=== PATIENT | male | born 1970 | race Caucasian/White ===

== ENCOUNTER 2019-05-11 09:19 | Emergency (ER) | payer BC ==
[2019-05-11 09:30] VITALS: PULSE 88
[2019-05-11] MEDS ORDERED: TORAdol 30 mg Injection IV ONE (09:51)
[2019-05-11] MEDS ORDERED: Zofran 4 MG/2 ML VIAL IV ONE (09:52)
--- NOTE | 2019-05-11 09:53 | ERPHSYRPT ---
- History of Present Illness Time Seen by Provider: 05/11/19 09:38 Historian: patient Exam Limitations: no limitations Patient Subjective Stated Complaint: Pt states "For the past week I have had back pain and now the pain is in my belly and I can't pee, I cant poop, it is horrible." Triage Nursing Assessment: Pt presented alert and orietned X 3, skin pwd. Pt ambulates with an upright steady gait, able to speak in clear full sentecnes. Pt moaning. Physician History: The patient is a 41-year-old male who presents with the chief complaint of right lower back pain and right lower quadrant abdominal pain that started a week ago. He had secondary complaints of constipation and difficulty urinating specifically weak urinary stream. He reports that he was at work and "tweaked his back" and has been going to a chiropractor over the last week for some relief in his symptoms. Over the past week, does endorse having episodes of nausea and the right lower back pain now seems to radiate to his right lower quadrant and he feels as if his testicles are "in a vice". He denies fever, chills but endorse having constipation over the last couple days in addition to her weak urinary stream over the last couple days. He reportedly has been taking ibuprofen with some relief of symptoms. He states he's got a history of a kidney stone but never followed up with urologist. his pain is described as a aching throbbing pain that radiates to his right lower quadrant is constant and is currently mild. Allergies/Adverse Reactions: No Known Drug Allergies Allergy (Verified 05/11/19 09:30) Home Medications: Allopurinol 100 mg [Zyloprim 100 mg] 100 mg PO DAILY 05/11/19 [History] Gabapentin [Neurontin] 600 mg PO DAILY 05/11/19 [History] Lisinopril/Hydrochlorothiazide [Lisinopril-Hctz 20-12.5 mg Tab] 1 tab PO DAILY 05/11/19 [History] Hx Tetanus, Diphtheria Vaccination/Date Given: No Hx Influenza Vaccination/Date Given: No Hx Pneumococcal Vaccination/Date Given: No Immunizations Up to Date: Yes - Review of Systems Constitutional: No Fever, No Chills Eyes: No Symptoms Ears, Nose, & Throat: No Symptoms Respiratory: No Symptoms, No Cough, No Cyanosis, No Dyspnea on Exertion (ARAUJO) Cardiac: No Symptoms, No Chest Pain, No Edema Abdominal/Gastrointestinal: Abdominal Pain, Nausea, Constipation, No Vomiting, No Diarrhea Genitourinary Symptoms: Flank Pain, Testicle Pain, Other (Weak stream), No Dysuria, No Penile Discharge Musculoskeletal: Back Pain Skin: No Symptoms Neurological: No Symptoms All Other Systems: Reviewed and Negative - Past Medical History Pertinent Past Medical History: Yes Neurological History: No Pertinent History ENT History: No Pertinent History Cardiac History: Hypertension Respiratory History: No Pertinent History Endocrine Medical History: No Pertinent History Musculoskeletal History: Arthritis GI Medical History: No Pertinent History History: No Pertinent History Psycho-Social History: No Pertinent History Male Reproductive Disorders: No Pertinent History Other Medical History: lt knee surgery - Past Surgical History Past Surgical History: Yes Neuro Surgical History: No Pertinent History Cardiac: No Pertinent History Respiratory: No Pertinent History Gastrointestinal: No Pertinent History Genitourinary: No Pertinent History Musculoskeletal: Orthopedic Surgery Male Surgical History: No Pertinent History Other Surgical History: lt knee reconstruction-acl repair--1994. left shoulder replaced - Social History Smoking Status: Never smoker Exposure to second hand smoke: Yes Drug Use: none Patient Lives Alone: Yes Significant Family History: no pertinent family hx - Nursing Vital Signs Nursing Vital Signs: Initial Vital Signs Temperature 98.0 F 05/11/19 09:25 Pulse Rate 88 05/11/19 09:25 Respiratory Rate 22 05/11/19 09:25 Blood Pressure 138/88 05/11/19 09:25 O2 Sat by Pulse Oximetry 96 05/11/19 09:25 Pain Scale Pain Intensity 3 - Physical Exam General Appearance: no apparent distress Eye Exam: PERRL/EOMI Ears, Nose, Throat Exam: normal ENT inspection Neck Exam: normal inspection Respiratory Exam: normal breath sounds, lungs clear, airway intact, No respiratory distress Cardiovascular Exam: regular rate/rhythm, normal heart sounds, normal peripheral pulses, capillary refill <2 sec Gastrointestinal/Abdomen Exam: soft, tenderness, other (RLQ tenderness with rebound tenderness), No distention, No mass, No guarding, No ecchymosis Male Genitalia Exam: normal genitalia, No testicular tenderness, No testicular mass Back Exam: normal inspection, other (No CVA tenderness, no midline spine tenderness, fluctuance or induration) Neurologic Exam: alert, oriented x 3 Skin Exam: normal color, warm, cyanosis, No rash, No petechiae, No jaundice SpO2 Interpretation: normal SpO2: 96 O2 Delivery: Room Air - Course Nursing assessment & vital signs reviewed: Yes - CT Exams Abdomen/Pelvis CT Interpretation: Other (Upon my review it appeares the patient has a small obstructing kidney stone in the right UVJ. Awaiting formal radiology review.) Ordered Tests: Medication Summary Discontinued Medications Generic Name Dose Route Start Last Admin Trade Name Krystal PRN Reason Stop Dose Admin Ketorolac Tromethamine 15 mg 05/11/19 09:51 05/11/19 10:01 Toradol 30 Mg Injection IV 05/11/19 09:52 15 mg STAT ONE Administration Ketorolac Tromethamine Confirm 05/11/19 09:59 Toradol 30 Mg Injection Administered 05/11/19 10:00 Dose 30 mg .ROUTE .STK-MED ONE Ondansetron HCl 4 mg 05/11/19 09:52 05/11/19 10:01 Zofran 4 Mg/2 Ml Vial IV 05/11/19 09:53 4 mg STAT ONE Administration Ondansetron HCl Confirm 05/11/19 09:59 Zofran 4 Mg/2 Ml Vial Administered 05/11/19 10:00 Dose 4 mg .ROUTE .STK-MED ONE Lab/Rad Data: Laboratory Result Diagrams 05/11/19 10:15 Laboratory Results 05/11/19 05/11/19 Range/Units 10:15 10:05 Sodium Direct 138 (138-146) mmol/L Potassium 3.7 (3.5-4.9) mmol/L Chloride 100 (98-109) mmol/L Carbon Dioxide 28 (24-29) mmol/L Venous BUN 26 (8-26) mg/dL Creatinine 1.3 (0.6-1.3) mg/dL Glucose 110 H (70-105) mg/dL Ionized Calcium 1.11 L (1.12-1.32) mmol/L Urine Color YELLOW (YELLOW) Urine Appearance CLEAR (CLEAR) Urine pH 5.0 (5-6) Ur Specific [place] 1.015 (1.005-1.025) Urine Protein NEGATIVE (Negative) Urine Ketones NEGATIVE (NEGATIVE) Urine Blood LARGE (0-5) Paul/ul Urine Nitrite NEGATIVE (NEGATIVE) Urine Bilirubin NEGATIVE (NEGATIVE) Urine Urobilinogen NEGATIVE (0-1) mg/dL Ur Leukocyte Esterase NEGATIVE (NEGATIVE) Urine WBC (Auto) 0-2 (0-5) /HPF Urine RBC (Auto) >101 (0-2) /HPF U Epithel Cells (Auto) NONE (FEW) /HPF Urine Bacteria (Auto) RARE (NEGATIVE) /HPF Urine Mucus (Auto) SLIGHT (NEGATIVE) /HPF Urine Culture Reflexed NO (NO) Urine Glucose NEGATIVE (NEGATIVE) mg/dL - Progress Progress: improved Progress Note: 05/11/19 10:20 I reviewed the patient's EMR and saw the patient had an abdominal CT in 2012 with evidence of a R obstructing urinary stone 2 mm in the UVJ Counseled pt/family regarding: lab results, diagnosis, need for follow-up (Need for f/u with urology), rad results - Departure Departure Disposition: Home Clinical Impression: Urinary tract obstruction by kidney stone, Hydronephrosis with urinary obstruction due to renal calculus, Constipation Condition: Stable Critical Care Time: No Referrals: CARMELITA LINN MD [Primary Care Provider] - DANIKA CURTIS [COURTESY STAFF] - Instructions: Kidney Stones in Adults, How to Strain Your Urine Additional Instructions: Please return to the emergency department if he had worsening pain that can't be controlled with medication, he develop fever, chills. Otherwise followup with urology and call to schedule appointment to be seen in the next one to 2 weeks. Plan of Treatment: Nontoxic in appearance. The patient presents with flank pain and was found to have a 2-4 mm obstruction stone in the right UVJ reviewing his CT with minimal amount of right hydronephrosis. His remaining laboratory workup was reviewed to include his BMP in the day which were relatively benign. He is reassessed upon in his pain was much improved and is ready for discharge. He is given a referral to urology and instructed to strain his ear in an attempt to collect a stone to bring to his followup appointment with urology for further analysis. The return precautions for pain in addition he was instructed to return if you develop any fever or chills in conjunction to his pain. He agreed with the plan is to discharge home. Flomax prescription deferred given stone < 5mm and recent literature showing no benefit to stones this size. I expect him to be able to pass this stone with conservative management. Prescriptions: Hydrocodone/APAP 5-325 Tab^^^ [Brogan 5-325 Tablet^^^] 1 tab PO Q6HPRN PRN #10 tablet MDD 6 PRN Reason: Pain Ketorolac Tromethamine [Toradol] 10 mg PO Q8H PRN PRN #30 tablet PRN Reason: Pain Docusate Sodium 100 mg PO BID 10 Days #30 capsule Ondansetron HCl [Zofran] 4 mg PO TID PRN #10 tablet PRN Reason: Nausea/Vomiting
[2019-05-11] MEDS ORDERED: TORAdol 30 mg Injection ONE (09:59)
[2019-05-11] MEDS ORDERED: Zofran 4 MG/2 ML VIAL ONE (09:59)
[2019-05-11 10:51] LABS: Appearance CLEAR (CLEAR); Bacteria RARE /HPF (NEGATIVE); Bilirubin NEGATIVE (NEGATIVE); Blood LARGE Ery/ul (0-5); Glucose NEGATIVE (NEGATIVE); Ketones NEGATIVE (NEGATIVE); Leukocyte Esterase NEGATIVE (NEGATIVE); Mucus SLIGHT /HPF (NEGATIVE); Nitrite NEGATIVE (NEGATIVE); Protein,Urine Dip NEGATIVE (Negative); Specific Gravity 1.015 (1.005-1.025); Urobilinogen NEGATIVE mg/dL (0-1); WBC 0-2 /HPF (0-5)
[2019-05-11 11:00] LABS: ISTAT CREA 1.3 mg/dL (0.6-1.3)
[2019-05-11 11:30] LABS: RBC >101 /HPF (0-2)
--- NOTE | 2019-05-11 11:36 | XRAY ---
Indication: Right flank pain 1 week. Multiple contiguous axial images obtained through the abdomen and pelvis without contrast as ordered. Comparison: CT renal stone study March 05, 2011. Lung bases demonstrate minimal subsegmental atelectasis/scarring with stable tiny left lower lobe calcified granuloma. Heart is not enlarged. Noncontrasted stomach and bowel loops appear nonobstructed. Normal appendix. There is now minimal left hemicolon diverticulosis. No free fluid/air. New 3-4 mm distal right ureteral calculus approximately 1 cm proximal to the UVJ. Right ureter minimally prominent with minimal hydronephrosis consistent with partial obstructive uropathy. Additional punctate calculi in each kidney. There remains a few calcified splenic granulomas and mild diffuse fatty liver. Remaining liver, gallbladder, pancreas, spleen, adrenal glands, kidneys, ureters, bladder, and aorta appear unremarkable for noncontrast exam. Osseous structures intact with minimal degenerative changes throughout the thoracolumbar spine. Impression: 1. New 3-4 mm distal right ureteral calculus producing minimal obstructive uropathy. Additional new bilateral renal micro-calculi. 2. New mild left hemicolon colonic diverticulosis without diverticulitis. 3. Stable fatty liver and evidence for old granulomatous disease. CT DI 31.20
[2019-05-11 12:06] VITALS: BP 145/77
[2019-05-13 13:05] VITALS: O2SAT 96
== END 2019-05-11 12:05 | disposition home or self-care (01) ==
LOC: ED 09:19
DX: N13.2 Hydronephrosis with renal and ureteral calculous obstruction (principal); K59.00 Constipation, unspecified
CPT/HCPCS: 36000; 36415; 74176; 80047; 81001; 96374; 96375; 99284; J1885; J2405

== ENCOUNTER 2020-05-29 10:42 | Emergency (ER) | payer BC ==
[2020-05-29] MEDS ORDERED: MORPHINE SULFATE 4 MG INJ IM ONE (10:54)
--- NOTE | 2020-05-29 10:55 | ERPHSYRPT ---
- History of Present Illness Time Seen by Provider: 05/29/20 10:45 Source: patient Exam Limitations: no limitations Physician History: 50 years old male presented in the ER with chief complaint of right foot and ankle pain/swelling. Patient reports he twisted his ankle 5 days ago, continue to ambulate until yesterday evening when pain got worse to the point he can hardly put any weight and has associated swelling proximal foot and ankle. Method of Injury: twisted Occurred: days ago (5) Quality: sharpness Severity of Pain-Max: moderate Lower Extremities Pain: hip: bilateral, leg: bilateral, knee: bilateral, thigh: bilateral, foot: right, ankle: right, heel: bilateral, 1st toe: bilateral, 2nd toe: bilateral, 3rd toe: bilateral, 4th toe: bilateral, 5th toe: bilateral, other: bilateral Modifying Factors: Improves With: immobilization, rest. Worsens With: movement Associated Symptoms: unable to bear weight Allergies/Adverse Reactions: No Known Drug Allergies Allergy (Verified 05/29/20 10:49) Home Medications: Allopurinol 100 mg [Zyloprim 100 mg] 100 mg PO DAILY 05/11/19 [History] Gabapentin [Neurontin] 600 mg PO DAILY 05/11/19 [History] Lisinopril/Hydrochlorothiazide [Lisinopril-Hctz 20-12.5 mg Tab] 1 tab PO DAILY 05/11/19 [History] Hx Tetanus, Diphtheria Vaccination/Date Given: No Hx Influenza Vaccination/Date Given: No Hx Pneumococcal Vaccination/Date Given: No - Review of Systems Constitutional: No Symptoms Eyes: No Symptoms Ears, Nose, & Throat: No Symptoms Respiratory: No Symptoms Cardiac: No Symptoms Abdominal/Gastrointestinal: No Symptoms - Past Medical History Pertinent Past Medical History: Yes Neurological History: No Pertinent History ENT History: No Pertinent History Cardiac History: Hypertension Respiratory History: No Pertinent History Endocrine Medical History: No Pertinent History Musculoskeletal History: Arthritis GI Medical History: No Pertinent History History: No Pertinent History Psycho-Social History: No Pertinent History Male Reproductive Disorders: No Pertinent History Other Medical History: lt knee surgery - Past Surgical History Past Surgical History: Yes Neuro Surgical History: No Pertinent History Cardiac: No Pertinent History Respiratory: No Pertinent History Gastrointestinal: No Pertinent History Genitourinary: No Pertinent History Musculoskeletal: Orthopedic Surgery Male Surgical History: No Pertinent History Other Surgical History: lt knee reconstruction-acl repair--1994. left shoulder replaced - Social History Smoking Status: Never smoker Exposure to second hand smoke: Yes Drug Use: none Patient Lives Alone: Yes Significant Family History: no pertinent family hx - Nursing Vital Signs Nursing Vital Signs: Initial Vital Signs Temperature 98.0 F 05/29/20 10:51 Pulse Rate 90 05/29/20 10:51 Respiratory Rate 18 05/29/20 10:51 Blood Pressure 152/99 05/29/20 10:51 O2 Sat by Pulse Oximetry 97 05/29/20 10:51 Pain Scale Pain Intensity 6 Ordered Tests: Active Orders 24 hr Category Date Time Status ANKLE (3 VIEWS) Stat Exams 05/29/20 11:16 Taken FOOT (MINIMUM 3 VIEWS) Stat Exams 05/29/20 11:16 Taken Medication Summary Discontinued Medications Generic Name Dose Route Start Last Admin Trade Name Freq PRN Reason Stop Dose Admin Morphine Sulfate 4 mg 05/29/20 10:54 05/29/20 10:59 Morphine Sulfate 4 Mg Inj IM 05/29/20 10:55 4 mg STAT ONE Administration Morphine Sulfate Confirm 05/29/20 10:59 Morphine Sulfate 4 Mg Inj Administered 05/29/20 11:00 Dose 4 mg .ROUTE .STK-MED ONE - Progress Progress: improved, pain not gone completely Progress Note: 05/29/20 11:43 He is given pain medication. I have obtained x-rays foot and ankle. Ankle x- ray did not show any fracture dislocation. Has questionable avulsion fracture fifth metatarsal. Placed in a long boot, weightbearing as tolerated and outp atient follow-up with Ortho/podiatry recommended. Discussed signs symptoms of worsening needing return to ER which he seems understanding. Counseled pt/family regarding: diagnosis, need for follow-up, rad results - Departure Departure Disposition: Home Clinical Impression: Ankle sprain Qualifiers: Encounter type: initial encounter Involved ligament of ankle: unspecified ligament Laterality: right Qualified Code(s): S93.401A - Sprain of unspecified ligament of right ankle, initial encounter Condition: Stable Critical Care Time: No Referrals: CARMELITA LINN MD [Primary Care Provider] - Follow Up with PCP/3 days CHINMAY OH NP [NON-STAFF PHY W/O PRIVILEGES] - (Tomorrow for reevaluation) Instructions: Foot Fracture (DC) Additional Instructions: Take pain medications as needed. Weightbearing only as possible. Apply ice. Elevation. Avoid exertion. Follow-up with Ortho clinic for reevaluation tomorrow. Return to ER for any worsening. Prescriptions: Hydrocodone/APAP 5-325 Tab^^^ [Lorain 5-325 Tablet^^^] 1 tab PO Q6HPRN PRN #10 tablet MDD 6 PRN Reason: Pain
[2020-05-29] MEDS ORDERED: MORPHINE SULFATE 4 MG INJ ONE (10:59)
[2020-05-29 12:16] VITALS: BP 129/75; PULSE 79; O2SAT 97
--- NOTE | 2020-05-29 18:54 | XRAY ---
Indication: Pain and bruising following injury 5 days ago. Comparison: None 3 view right ankle demonstrates soft tissue swelling, small heel spurs, and tiny cuboid accessory ossicle. No other bony, articular, or soft tissue abnormalities.
--- NOTE | 2020-05-29 18:56 | XRAY ---
Indication: Pain and bruising following injury 5 days ago. Comparison: None 3 nonweightbearing views right foot demonstrates small heel spurs and cuboid accessory ossicle. No other bony, articular, or soft tissue abnormalities.
== END 2020-05-29 12:16 | disposition home or self-care (01) ==
LOC: ED 10:42
DX: S93.401A Sprain of unspecified ligament of right ankle, initial encounter (principal); X50.1XXA Overexertion from prolonged static or awkward postures, initial encounter; Y93.89 Activity, other specified; Y92.89 Other specified places as the place of occurrence of the external cause; M25.571 Pain in right ankle and joints of right foot
CPT/HCPCS: 73610; 73630; 96372; 99284; J2270; L4386

== ENCOUNTER 2024-11-01 23:03 | Emergency (ER) | payer BC, OTHER ==
[2024-11-01 23:10] VITALS: TEMP 97.4
--- NOTE | 2024-11-01 23:10 | ERPHSYRPT ---
- History of Present Illness Time Seen by Provider: 11/01/24 23:09 Source: patient Physician History: This is an overweight 54-year-old white male patient arrives by private vehicle and presents with shortness of breath and coughing that have been present for 2 days. His primary care provider is Dr. Linn. Patient went to [facility] this afternoon and was prescribed Augmentin medication. He took 1 dose of that at 5 PM. His coughing has persisted. Timing/Duration: day(s) (2), worse (Symptoms worse today) Severity of Dyspnea-Max: mild Severity of Dyspnea-Current: mild Possible Cause: no prior episodes Associated Symptoms: cough, No chest pain/discomfort, No wheezing, No hemoptysis, No calf pain Allergies/Adverse Reactions: No Known Drug Allergies Allergy (Verified 11/01/24 23:04) Home Medications: Allopurinol 100 mg [Zyloprim 100 mg] 100 mg PO DAILY 05/11/19 [History] Lisinopril/Hydrochlorothiazide [Lisinopril-Hctz 20-12.5 mg Tab] 1 tab PO DAILY 05/11/19 [History] Amoxicillin/Potassium Clav [Amox-Clav 875-125 mg Tablet] 1 tab PO BID 11/01/24 [History] Methylprednisolone 4 mg [Medrol 4 mg] 2 tab PO BID 11/01/24 [History] Hx Tetanus, Diphtheria Vaccination/Date Given: No Hx Influenza Vaccination/Date Given: No Hx Pneumococcal Vaccination/Date Given: No Travel Risk - International Travel Have you traveled outside of the country in past 3 weeks: No - Emerging Infectious Disease Are you exhibiting symptoms associated with any current EIDs: Yes Symptoms: Cough: New Onset, Shortness of Breath - Review of Systems Constitutional: No Symptoms Eyes: No Symptoms Ears, Nose, & Throat: No Symptoms Respiratory: Cough, Dyspnea Cardiac: No Symptoms Abdominal/Gastrointestinal: No Symptoms Genitourinary Symptoms: No Symptoms Musculoskeletal: No Symptoms Skin: No Symptoms Neurological: No Symptoms Psychological: No Symptoms Endocrine: No Symptoms Hematologic/Lymphatic: No Symptoms Immunological/Allergic: No Symptoms All Other Systems: Reviewed and Negative - Past Medical History Pertinent Past Medical History: Yes Neurological History: No Pertinent History ENT History: No Pertinent History Cardiac History: Hypertension Respiratory History: No Pertinent History Endocrine Medical History: No Pertinent History Musculoskeletal History: Arthritis GI Medical History: No Pertinent History History: No Pertinent History Psycho-Social History: No Pertinent History Male Reproductive Disorders: No Pertinent History Other Medical History: lt knee surgery - Past Surgical History Past Surgical History: Yes Neuro Surgical History: No Pertinent History Cardiac: No Pertinent History Respiratory: No Pertinent History Gastrointestinal: No Pertinent History Genitourinary: No Pertinent History Musculoskeletal: Orthopedic Surgery Male Surgical History: No Pertinent History Other Surgical History: lt knee reconstruction-acl repair--1994. left shoulder replaced Significant Family History: no pertinent family hx - Social History Smoking Status: Never smoker Exposure to second hand smoke: Yes Drug Use: none Patient Lives Alone: Yes - Nursing Vital Signs Nursing Vital Signs: Initial Vital Signs Pulse Rate 89 11/01/24 23:03 Respiratory Rate 20 11/01/24 23:03 Blood Pressure 184/98 11/01/24 23:03 O2 Sat by Pulse Oximetry 91 L 11/01/24 23:03 Pain Scale Pain Intensity 0 - Physical Exam General Appearance: no apparent distress, alert, obese Eye Exam: PERRL/EOMI, eyes nml inspection Ears, Nose, Throat Exam: hearing grossly normal, normal ENT inspection, normal pharynx Neck Exam: normal inspection, non-tender, supple, full range of motion Respiratory Exam: normal breath sounds, lungs clear, airway intact, No chest tenderness, No respiratory distress Cardiovascular/Chest Exam: normal heart sounds, regular rate/rhythm Abdominal/Gastrointestinal Exam: soft, normal bowel sounds, No tenderness Rectal Exam: not done Extremity Exam: non-tender Neurologic Exam: alert, oriented x 3, cooperative, hotel server II-XII nml as tested, normal mood/affect, nml cerebellar function, nml station & gait, sensation nml Skin Exam: normal color, warm, dry Lymphatic Exam: No adenopathy SpO2 Interpretation: borderline oxygenation O2 Delivery: Room Air - Course Nursing assessment & vital signs reviewed: Yes Ordered Tests: Active Orders 24 hr Category Date Time Status CHEST 1 VIEW (PORTABLE) Stat Exams 11/01/24 23:26 Taken Medication Summary Discontinued Medications Generic Name Dose Route Start Last Admin Trade Name Freq PRN Reason Stop Dose Admin Hydrocodone Bitart/Acetaminophen 15 ml 11/01/24 23:28 11/01/24 23:33 Hydrocodone/Acetaminophen 5 Ml Udcup PO 11/01/24 23:29 15 ml STAT STA Administration Hydrocodone Bitart/Acetaminophen Confirm 11/01/24 23:31 Hydrocodone/Acetaminophen 5 Ml Udcup Administered 11/01/24 23:32 Dose 15 ml .ROUTE .STK-MED ONE Ceftriaxone Sodium 1,000 mg 11/01/24 23:28 11/01/24 23:33 Ceftriaxone Sodium 1000 Mg Inj Vial IM 11/01/24 23:29 1,000 mg STAT ONE Administration Ceftriaxone Sodium Confirm 11/01/24 23:31 Ceftriaxone Sodium 1000 Mg Inj Vial Administered 11/01/24 23:32 Dose 1,000 mg .ROUTE .STK-MED ONE Methylprednisolone Sodium 0 mg 11/01/24 23:28 11/01/24 23:34 Succinate 125 mg/ Sterile IM 11/01/24 23:29 125 mg Water 2 ml STAT ONE Administration Lidocaine HCl Confirm 11/01/24 23:32 Lidocaine Hcl 1% 20 Ml Mdv 20 Ml Ml Administered 11/01/24 23:33 Dose 1 ml .ROUTE .STK-MED ONE Methylprednisolone Sodium Succinate Confirm 11/01/24 23:31 Methylprednis Sod Succ 125 Mg/2 Ml Vial Administered 11/01/24 23:32 Dose 125 mg .ROUTE .STK-MED ONE Sterile Water Confirm 11/01/24 23:31 Water For Injection,Sterile 10 Ml Vial Administered 11/01/24 23:32 Dose 10 ml IJ .STK-MED ONE - Progress Progress: improved, re-examined Air Movement: good Progress Note: 11/02/24 00:14 My medical decision making and the assignment of low complexity to this patient's medical issue today is based on review of the patient's past medical history, review the patient's medication list, reviewed patient drug allergy list, history present illness and physical findings on examination. The workup in this patient includes chest x-ray. Differential diagnosis includes but is not limited to upper respiratory infection, pneumonia, bronchitis, exacerbation of COPD I interpreted the preliminary report of the patient's chest x-ray. The patient has right sided pulmonary infiltrate. Blood Culture(s) Obtained: No Antibiotics given: Yes Counseled pt/family regarding: diagnosis, need for follow-up, rad results Medical Desision Making - Diagnostic Testing Diagnostic test were ordered, analyzed, and reviewed by me: Yes Radiological Interpretation: Interpreted by me, Teleradiologist Report - Risk of complications The pt has a mod risk of morbidity or mortality based on: Need for prescription drug management - Departure Departure Disposition: Home Clinical Impression: Right pulmonary infiltrate on CXR Condition: Stable Critical Care Time: No Referrals: CARMELITA LINN MD [Primary Care Provider, INTERNAL MEDICINE] - Follow up/PCP as directed Instructions: Cough in adults, Shortness of Breath (Dyspnea) (DC) Additional Instructions: Drink plenty of fluids. Avoid exposure to any type of smoke. Continue your steroids as prescribed. Call your primary care provider today, 11/02/2024, to make arrangements for follow-up appointment to be seen in the next 3 to 5 days. Continue your antibiotic as prescribed Prescriptions: Hydrocodone/Acetaminophen [Hydrocodone-Acetamn 7.5-325/15] 10 ml PO Q8H PRN #120 ml MDD 30 ml PRN Reason: Cough Albuterol 8 gm Mdi Hfa [Ventolin Hfa MDI] 8 gm IH Q4H #1 unit
[2024-11-01] MEDS ORDERED: HYDROCODONE-ACETAMIN 2.5-108/5 ML SOLUTION ONE (23:31)
[2024-11-01] MEDS ORDERED: Rocephin 1000 MG INJ ONE (23:31)
[2024-11-01] MEDS ORDERED: Sterile H2O 10 ml IJ ONE (23:31)
[2024-11-01] MEDS ORDERED: solu-MEDROL ONE (23:31)
[2024-11-01] MEDS ORDERED: XYLOCAINE 1% HCL 20 ML MDV ONE (23:32)
[2024-11-01] MEDS: HYDROCODONE-ACETAMIN 2.5-108/5 ML SOLUTION PO STA (23:33)
[2024-11-01] MEDS: Rocephin 1000 MG INJ IM ONE (23:33)
[2024-11-01] MEDS: solu-MEDROL 125 MG, Sterile H2O 10 ml 2 ML IM ONE (23:34)
[2024-11-02 00:10] VITALS: BP 148/67; PULSE 89; RESP 23; O2SAT 96
--- NOTE | 2024-11-02 08:43 | XRAY ---
Indication: Cough. Comparison: None Portable chest inflated and clear with a few tiny calcified granulomas. Heart not enlarged with tortuous descending aorta. Bony thorax intact with osteopenia, minimal degenerative changes, and left shoulder arthroplasty. Impression: Nonacute chest with chronic features.
== END 2024-11-02 00:23 | disposition home or self-care (01) ==
LOC: ED 23:03
DX: R91.8 Other nonspecific abnormal finding of lung field (principal); R05.1 Acute cough; R06.02 Shortness of breath; I10 Essential (primary) hypertension; Z79.899 Other long term (current) drug therapy
CPT/HCPCS: 71045; 96372; 99283; 99284; J0696; J2919; A9270-GY